=== PATIENT | female | born 1990 | race Caucasian/White ===

== ENCOUNTER 2017-03-15 21:50 | Inpatient (IN) | payer BC ==
[~2017-03-15] VITALS: Ht 177.8 cm; Wt 102.3 kg
[~2017-03-15 21:50] MED LIST: BELVIQ10 MG PO; LORAZEPAM1 MG PO
[2017-03-15 22:26] VITALS: BP 137/71
[2017-03-15 23:27] LABS: EOSINOPHIL (%) 0.6 % (0-5); EOSINOPHIL COUNT 0.1 K/uL (0-0.3); HEMATOCRIT 32.2 % (36.0-46.0); IMMATURE GRANULOCYTE (%) 1.2 % (0.0-0.7); IMMATURE GRANULOCYTE COUNT 0.2 K/uL; INSTRUMENT ABS NEUTROPHIL CT 8.2 K/uL; LYMPHOCYTE COUNT 2.7 K/uL (1.0-2.8); MCH 25.7 PG (29.0-34.0); MCHC 31.4 G/DL (30.0-36.0); MCV 81.9 FL (83-99); MEAN PLAT.VOLUME 10.5 uM^3 (9.5-12.4); MONOCYTE (%) 10.2 % (3-12); MONOCYTE COUNT 1.3 K/uL (0-0.8); NEUTROPHIL COUNT 8.2 K/uL (1.8-6.4); PLATELET COUNT 331 K/uL (156-360); RBC DIS.WIDTH-CV 14.5 % (11.8-14.6); RBC DIS.WIDTH-SD 42.5 % (39-53); RED BLOOD COUNT 3.93 M/uL (3.80-5.20); WHITE BLOOD COUNT 12.4 K/uL (4.1-10.2)
[2017-03-16] VITALS (24 sets, daily range): BP systolic 119–150; BP diastolic 51–86
[2017-03-16] MEDS ORDERED: IBUPROFEN800 MG PO (12:46)
[2017-03-16] MEDS ORDERED: ACETAMINOPHEN-1 EAC1 PO (12:46)
[2017-03-17 07:19] VITALS: BP 158/71
[2017-03-17 07:20] LABS: BASOPHIL COUNT 0.1 K/uL (0-0.1); EOSINOPHIL (%) 0.3 % (0-5); EOSINOPHIL COUNT 0.1 K/uL (0-0.3); IMMATURE GRANULOCYTE (%) 0.9 % (0.0-0.7); IMMATURE GRANULOCYTE COUNT 0.2 K/uL; INSTRUMENT ABS NEUTROPHIL CT 13.8 K/uL; MCH 26.9 PG (29.0-34.0); MCHC 32.4 G/DL (30.0-36.0); MCV 82.9 FL (83-99); MEAN PLAT.VOLUME 10.2 uM^3 (9.5-12.4); MONOCYTE (%) 10.8 % (3-12); MONOCYTE COUNT 2.1 K/uL (0-0.8); NEUTROPHIL (%) 72.1 % (45-76); NEUTROPHIL COUNT 13.8 K/uL (1.8-6.4); PLATELET COUNT 271 K/uL (156-360); RBC DIS.WIDTH-CV 14.8 % (11.8-14.6); RBC DIS.WIDTH-SD 44.2 % (39-53); WHITE BLOOD COUNT 19.1 K/uL (4.1-10.2)
[2017-03-17 08:06] VITALS: BP 118/60
[2017-03-17 14:36] VITALS: BP 132/72
[2017-03-17 22:59] VITALS: BP 141/71
[2017-03-18 07:19] VITALS: BP 139/76
== END 2017-03-18 14:05 | disposition home or self-care (01) | DRG 775 ==
LOC: LDRP-OP 21:50 → 2WEST 21:51 → LDRP-OP 04-19 13:26
PROVIDERS: Obstetrics & Gynecology; Obstetrics & Gynecology Gynecology
DX: O70.1 Second degree perineal laceration during delivery (principal); O99.02 Anemia complicating childbirth; D50.9 Iron deficiency anemia, unspecified; Z3A.39 39 weeks gestation of pregnancy; Z37.0 Single live birth
CPT/HCPCS: 85025; C1755; G0378; J3010; J7120